=== PATIENT | female | born 1970 | race Caucasian/White ===

== ENCOUNTER 2018-11-02 10:10 | Emergency (ER) | payer MEDICAID ==
[~2018-11-02] VITALS: Ht 167.6 cm; Wt 84.1 kg
[2018-11-02] MEDS ORDERED: morphine 4 MG/ML inj SYRINge IM ONE (10:25)
[2018-11-02] MEDS ORDERED: acetaminophen 325mg tablet PO ONE (10:25)
[2018-11-02] MEDS ORDERED: ondansetron 4mg rapidly disintigrating tab PO ONE (10:25)
[2018-11-02 10:57] LABS: COLOR,URINE YELLOW (Yellow); GLUCOSE, URINE NEGATIVE (Neg); KETONES,URINE NEGATIVE (Neg); LEUKOCYTE ESTERASE ,URINE MODERATE (Neg); NITRITES, URINE NEGATIVE (Neg); OCCULT BLOOD,URINE SMALL (Neg); PROTEIN,URINE NEGATIVE (Neg); UROBILINOGEN,URINE 0.2 E.U/dL (0.2-1.0)
[2018-11-02 11:01] LABS: CLARITY,URINE SLIGHTLY CLOUDY (Clear); UA COLLECTION TYPE CLN CATCH MIDSTREAM
[2018-11-02 11:03] LABS: BACTERIA,URINE FEW /HPF (Neg); RBC,URINE 0-2 /HPF (0-2); SQUAMOUS EPITHELIAL CELL,UR MODERATE /LPF (FEW)
--- NOTE | 2018-11-02 11:28 | NUR ---
ULTRASOUND AT BEDSIDE
[2018-11-02] MEDS ORDERED: mag hydrox/Alum hydrox/simeth 30ml oral suspension PO ONE (11:35)
[2018-11-02] MEDS ORDERED: cephalexin 250mg capsule PO ONE (11:35)
[2018-11-02] MEDS ORDERED: famotidine 20mg tablet PO ONE (11:35)
[2018-11-02] MEDS ORDERED: LIDOcaine Viscous 15ml cup PO ONE (11:35)
[2018-11-02] MEDS ORDERED: ONDA8TAB13 PO (12:28)
[2018-11-02 12:48] VITALS: BP 125/88
[2018-11-02] MEDS ORDERED: CEPH250T PO (13:54)
== END 2018-11-02 12:50 | disposition home or self-care (01) ==
LOC: ER 10:11
DX: N83.201 Unspecified ovarian cyst, right side (principal); F12.90 Cannabis use, unspecified, uncomplicated; Z88.6 Allergy status to analgesic agent; Z79.899 Other long term (current) drug therapy; Z90.49 Acquired absence of other specified parts of digestive tract; Z90.710 Acquired absence of both cervix and uterus; Z87.891 Personal history of nicotine dependence; Z90.81 Acquired absence of spleen
CPT/HCPCS: 76856; 81001; 87088; 96372; 99284; J2270